=== PATIENT | female | born 1950 | race Caucasian/White ===

== ENCOUNTER 2023-12-09 11:05 | Outpatient (REF) | payer MEDICARE, SELFPAY ==
[2023-12-09 13:40] LABS: Anion Gap 14 (12-20); Blood Urea Nitrogen 84 mg/dL (9-16); Calcium 9.1 mg/dL (8.4-10.2); Carbon Dioxide 22 mmol/L (22-29); Chloride 110 mmol/L (96-108); Glucose Random 202 mg/dL (60-115); Potassium 5.4 mmol/L (3.3-5.1); Sodium 141 mmol/L (135-145)
[2023-12-09 15:05] LABS: Estimated Glomerular Filt Rate 10
== END 2023-12-09 11:06 | disposition home or self-care (01) ==
LOC: HO.HVNA 11:05
PROVIDERS: Visit Provider Internal Medicine
DX: N18.5 Chronic kidney disease, stage 5 (principal)
CPT/HCPCS: 36415; 80048